=== PATIENT | female | born 1985 ===

== ENCOUNTER 2022-01-25 01:31 | Emergency (ER) | payer BC ==
--- OUTSIDE RECORDS SUMMARY | 2022-01-25 01:35 | XMS REPORT | Continuity of Care Document ---
:[address] [facility] t Address [address] [place] [address] [address] [place] [address] Care Team Providers Name Role Phone Lab, Adc Fam Pob I Attending Clinician Unavailable Mary Martínez Attending Clinician MARY VARGAS Attending Clinician Unavailable Iveth Norris PA-C Attending Clinician Hannah Henley Attending Clinician Mariano Mckeon MD Attending Clinician Doctor Unassigned, [place] Attending Clinician Unavailable Payers Payer Name Policy Type Policy Number Effective Date Expiration Date S ource Problems Condition Condition Condition Status Onset Resolution Last Treating Co mments Source Name Details Category Date Date Treatment Clinician Date Encounter Encounter Problem Active Com mon for IUD for IUD Spirit removal removal - [facility] Encounter Encounter Problem Active Com mon for for [facility] insertion insertion - [facility] IUD IUD [facility] Amenorrhea Amenorrhea Diagnosis Active Common Spirit - [facility] Encounter Encounter Diagnosis Active C ommon for for Spirit routine routine [facility] samir device (IUD) (IUD) Allergies, Adverse Reactions, Alerts Allergy Allergy Status Severity Reaction(s) Onset Inactive Treating Comm ents Source Name Type Date Date Clinician NO KNOWN Drug Active Univers ALLERGIE Class ity [facility] Social History Social Habit Start Date Stop Date Quantity Comments Source Exposure to Yes [facility] SARS-CoV-2 (event) Medica l Branch Sex Assigned At [birth year] [facility] 00:00:00 00:00:00 Medical Branch Smoking Status Start Date Stop Date Source Unknown if ever smoked [facility] Medications Ordered Filled Start Stop Current Ordering Indication Dosage Frequency Signature Comments Components Source Medication Medication Date Date Medication? Clinician (SIG) Name Name Almita (52 Mirkatina (51 Yes Tyrese as Common MG) MG) Shade directed [facility] Procedures Procedure Date / Time Performed Performing Clinician Sourc e XR CHEST 2 VW 2019-03-22 21:28:06 Mariano Mckeon [facility] ASSIGNMENT OF BENEFITS 2019-03-22 21:07:17 Doctor Unassigned, No [facility] Name [facility] Encounters Start End Encounter Admission Attending Care Care Encounter Source Date/Time Date/Time Type Type Clinicians Facility Department ID 2020-05-15 2020-05-15 Laboratory Lab, [facility] [id number]. [id number] Univers 14:00:43 14:20:43 Only Mary Vargas [facility] [id number] ity of [place] [id number] Dov as Professio [phone] Nj dical nal [address] One 2020-05-15 2020-05-15 [facility] [id number] Univers 14:00:00 14:00:00 MARY ity [facility] 2020-03-21 2020-03-21 Laboratory Lab, [facility] I [facility] 1.2. [id number] Univers 15:44:50 16:04:50 Only Mary Vargas Health [id number] ity of [place] [id number] Dov as Professio [phone] Nj dical nal [address] 2020-03-21 2020-03-21 Outpatient R [facility] [id number] Univers 16:00:00 16:00:00 ity [facility] 2019-08-30 2019-08-30 [facility] [id number] Univers 00:00:00 00:00:00 Iveth Health [id number] it y of [place] [id number] Dov as Professio [phone] Me dical nal [address] [facility] 2019-08-29 2019-08-29 Laboratory Lab, Adc Fam Pob I [facility] 1.2. [id number] Univers 17:23:40 17:43:40 Only AneneHannah [id number] ity of [place] [id number] Dov as Professio [phone] Nj dicmo nal [address] [facility] 2019-08-29 2019-08-29 Outpatient R [facility] [id number] Univers 17:40:00 17:40:00 ity of [facility] 2019-03-22 2019-03-22 Hospital Mariano Mckeon [facility] [id number] Univers 15:12:00 23:59:00 Encounter Bassem Morrison [id number] ity of [place] [id number] [facility] [phone] [facility] [address] 2019-03-22 2019-03-22 Orders Doctor IVETH [id number] Univers 00:00:00 00:00:00 Only Unassigned, LAYLA [id number] ity of [place] [facility] [id number] Dov as [phone] [facility] [address] 2017-11-04 2017-11-04 [facility] [id number] Common 15:45:00 15:45:00 [facility] 2017-10-05 2017-10-05 [facility] [id number] Common 11:15:00 11:15:00 t [facility] I [facility] 2017-10-04 2017-10-04 [facility] [id number] Common 14:15:00 14:15:00 t [facility] Results Test Description Test Time Test Comments Results Result Sourc e Comments XR CHEST 2 VW 2019-03-02 HISTORY: Cough. Univer sity of 2 TECHNIQUE: PA and Joy Hodge edical 21:31:21 lateral views of the Bran ch chest are obtained. No prior cheststudy available for comparison. FINDINGS: No acute pneumonia detected. No pneumothorax or pleural effusionor pulmonary congestion appreciated. Cardiomediastinal contour appearsnormal. CONCLUSIONS: No signs of acute cardiopulmonary disease.[facility], Radiant Results Inft User - 03/22/2019 3:32 PM CSTHISTORY: Cough.TECHNIQUE: PA and lateral views of the chest are obtained. No prior cheststudy available for comparison.FINDINGS: No acute pneumonia detected. No pneumothorax or pleural effusionor pulmonary congestion appreciated. Cardiomediastinal contour appearsnormal.CONCLUS IONS: No signs of acute cardiopulmonary disease.
[2022-01-25 02:10] LABS: Absolute Lymphocytes (CBC) 2.7 K/uL (0.7-4.9); Hematocrit 37.4 % (36.0-45.0); Lymphocytes % 40.9 % (15.3-44.8); MCV 86.4 fL (80-100); MPV 8.2 fL (7.6-11.3); RBC Red Blood Cell Count 4.33 M/uL (3.86-4.86)
[2022-01-25 02:25] LABS: ALT/SGPT 21 U/L (12-78); AST/SGOT 13 U/L (15-37); Albumin 3.5 g/dL (3.4-5.0); Alkaline Phosphatase 48 U/L (45-117); BUN Blood Urea Nitrogen 18 mg/dL (7-18); Bicarbonate 27 mmol/L (21-32); Bilirubin Total 0.3 mg/dL (0.2-1.0); Glomerular Filtration Rate 60 ml/min (=/>90); Glucose Level 121 mg/dL (74-106); Lipase 312 U/L (73-393); Potassium 3.7 mmol/L (3.5-5.1); Protein, Total 6.8 g/dL (6.4-8.2); Sodium Level 139 mmol/L (136-145); Troponin High Sensitivity 3.9 pg/mL (<58.9)
[2022-01-25 02:26] LABS: Bilirubin Direct < 0.1 mg/dL (0-0.2)
--- NOTE | 2022-01-25 03:20 | ER ---
Nurse's Notes [facility] Name: Svetlana Maki Age: 36 yrs Sex: Female : 1985 Arrival Date: 01/25/2022 Time: 01:35 Bed 4 Private MD: Diagnosis: Chest pain, unspecified Presentation: 01/25 01:55 Chief complaint: Patient states: I went to bed around 11, 11:30 last night and then I kd3 woke up suddenly with a pain in the center of my chest that made my tongue feel weird. I have heartburn sometimes but this was right in the center of my chest and it hurt more. Coronavirus screen: Vaccine status: Patient reports receiving the 1st dose of the Covid vaccine. J\T\J. Ebola Screen: No symptoms or risks identified at this time. Initial Sepsis Screen: Does the patient meet any 2 criteria? No. Patient's initial sepsis screen is negative. Does the patient have a suspected source of infection? No. Patient's initial sepsis screen is negative. Risk Assessment: Do you want to hurt yourself or someone else? Patient reports no desire to harm self or others. Onset of symptoms was January 25, 2022. 01:55 Method Of Arrival: Ambulatory kd3 01:55 Acuity: RANDY 3 kd3 Triage Assessment: 01:59 General: Appears uncomfortable, Behavior is calm, cooperative. Pain: Complains of pain kd3 in mid-sternal area Pain radiates to mouth and neck. Neuro: Level of Consciousness is awake, alert, obeys commands, Oriented to person, place, time, situation. Cardiovascular: Patient's skin is warm and dry. Rhythm is sinus rhythm Chest pain is located in substernal area. Respiratory: Airway is patent Trachea midline Respiratory effort is even, unlabored, Respiratory pattern is regular, symmetrical. 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 - Social history:: Smoking status: unknown. - Family history:: not pertinent. Screenin:01 Abuse screen: Denies threats or abuse. Denies injuries from another. Nutritional kd3 screening: No deficits noted. Tuberculosis screening: No symptoms or risk factors identified. Fall Risk None identified. Assessment: 01:45 General: Appears in no apparent distress. comfortable, Behavior is calm, cooperative, jb4 appropriate for age. Pain: Complains of pain in mid-sternal area Pain radiates to mouth Pain currently is 4 out of 10 on a pain scale. Neuro: Level of Consciousness is awake, alert, obeys commands, Oriented to person, place, time, situation. Cardiovascular: Patient's skin is warm and dry. Respiratory: Airway is patent Respiratory effort is even, unlabored, Respiratory pattern is regular, symmetrical. Derm: Skin is intact, Skin is pink, warm \T\ dry. Musculoskeletal: Circulation, motion, and sensation intact. Range of motion: intact in all extremities. 02:01 Pain: Pain began suddenly. kd3 03:00 Reassessment: Patient appears in no apparent distress at this time. Patient and/or jb4 family updated on plan of care and expected duration. Pain level reassessed. Patient is alert, oriented x 3, equal unlabored respirations, skin warm/dry/pink. 03:48 Reassessment: Patient appears in no apparent distress at this time. Patient and/or jb4 family updated on plan of care and expected duration. Pain level reassessed. Patient is alert, oriented x 3, equal unlabored respirations, skin warm/dry/pink. Vital Signs: 01:55 BP 113 / 78; Pulse 74; Resp 16; Temp 98.6(O); Pulse Ox 100% on R/A; kd3 02:02 Weight 88.45 kg; Height 5 ft. 9 in. (175.26 cm); kd3 02:47 BP 115 / 86; Pulse 76; Resp 19; Pulse Ox 100% on R/A; kd3 02:02 Body Mass Index 28.80 (88.45 kg, 175.26 cm) kd3 ED Course: 01:35 Patient arrived in ED. bp1 01:38 Joseph Garcia MD is Attending Physician. rt 01:59 Triage completed. kd3 01:59 Arm band placed on. Arm band placed on right wrist. EKG completed in triage. Results kd3 shown to . 02:00 Inserted saline lock: 20 gauge in right antecubital area, using aseptic technique. ds4 Blood collected. 02:01 Patient maintains SpO2 saturation greater than 95% on room air. kd3 02:01 Patient has correct armband on for positive identification. Client placed on continuous kd3 cardiac and pulse oximetry monitoring. NIBP monitoring applied. 02:03 XRAY Chest (1 view) In Process Unspecified. EDMS 03:11 Keo Crocker, RN is Primary Nurse. jb4 03:48 No provider procedures requiring assistance completed. IV discontinued, intact, jb4 bleeding controlled, No redness/swelling at site. Pressure dressing applied. Administered Medications: No medications were administered Medication: 02:01 VIS not applicable for this client. kd3 Outcome: 03:19 Discharge ordered by MD. rt 03:46 Patient left the ED. jb4 03:48 Discharged to home ambulatory. jb4 03:48 Condition: stable 03:48 Discharge instructions given to patient, Instructed on discharge instructions, follow up and referral plans. Demonstrated understanding of instructions, follow-up care. Signatures: Dispatcher [employer] EDNE Immanuel Colindres ds4 Keo Crocker, RN RN jb4 Claudia Green Kyli, RN RN kd3 Joseph Garcia MD MD rt
--- NOTE | 2022-01-25 03:20 | EDPHYS ---
Physician Documentation [facility] Name: Svetlana Maki Age: 36 yrs Sex: Female : 1985 Arrival Date: 01/25/2022 Time: 01:35 Bed 4 Private MD: ED Physician Joseph Garcia HPI: 01/25 01:51 This 36 yrs old Unknown Female presents to ER via Unassigned with complaints of Chest rt Pain > 30 y/o. 01:51 The patient or guardian reports chest pain that is located primarily in the substernal rt area. The pain radiates to Associated signs and symptoms: Pertinent positives: nausea, Pertinent negatives: abdominal pain. The chest pain is described as a pressure. Duration: The patient or guardian reports a single episode, that is still ongoing, but improving. Modifying factors: The symptoms are alleviated by nothing. the symptoms are aggravated by nothing. Severity of pain: At its worst the pain was moderate. Presents to the ED with a substernal chest pain. The patient went to bed feeling well, when she was woken with chest pain. Had nausea at that time, but that is since resolved. Patient states that symptoms continue to improve, not resolution. Denies other acute complaints at this time, symptoms are moderate severity, no other aggravating alleviating factors. 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 - Social history:: Smoking status: unknown. - Family history:: not pertinent. ROS: 01:51 Constitutional: Negative for fever, chills, and weight loss, Eyes: Negative for injury, rt pain, redness, and discharge, ENT: Negative for injury, pain, and discharge, Neck: Negative for injury, pain, and swelling, Cardiovascular: Negative for chest pain, palpitations, and edema, Respiratory: Negative for shortness of breath, cough, wheezing, and pleuritic chest pain, MS/Extremity: Negative for injury and deformity, Skin: Negative for injury, rash, and discoloration, Neuro: Negative for headache, weakness, numbness, tingling, and seizure, Psych: Negative for depression, anxiety, suicide ideation, homicidal ideation, and hallucinations. 01:51 Cardiovascular: Positive for chest pain, Negative for edema. 01:51 Abdomen/GI: Positive for nausea, Negative for abdominal pain, vomiting. Exam: 01:51 Constitutional: This is a well developed, well nourished patient who is awake, alert, rt and in no acute distress. Head/Face: Normocephalic, atraumatic. Eyes: Pupils equal round and reactive to light, extra-ocular motions intact. Lids and lashes normal. Conjunctiva and sclera are non-icteric and not injected. Cornea within normal limits. Periorbital areas with no swelling, redness, or edema. ENT: Nares patent. No nasal discharge, no septal abnormalities noted. Tympanic membranes are normal and external auditory canals are clear. Oropharynx with no redness, swelling, or masses, exudates, or evidence of obstruction, uvula midline. Mucous membranes moist. Neck: Trachea midline, no thyromegaly or masses palpated, and no cervical lymphadenopathy. Supple, full range of motion without nuchal rigidity, or vertebral point tenderness. No Meningismus. Chest/axilla: Normal chest wall appearance and motion. Nontender with no deformity. No lesions are appreciated. Cardiovascular: Regular rate and rhythm with a normal S1 and S2. No gallops, murmurs, or rubs. Normal PMI, no JVD. No pulse deficits. Respiratory: Lungs have equal breath sounds bilaterally, clear to auscultation and percussion. No rales, rhonchi or wheezes noted. No increased work of breathing, no retractions or nasal flaring. Abdomen/GI: Soft, non-tender, with normal bowel sounds. No distension or tympany. No guarding or rebound. No evidence of tenderness throughout. Skin: Warm, dry with normal turgor. Normal color with no rashes, no lesions, and no evidence of cellulitis. MS/ Extremity: Pulses equal, no cyanosis. Neurovascular intact. Full, normal range of motion. Neuro: Awake and alert, GCS 15, oriented to person, place, time, and situation. Cranial nerves II-XII grossly intact. Motor strength 5/5 in all extremities. Sensory grossly intact. Cerebellar exam normal. Normal gait. Psych: Awake, alert, with orientation to person, place and time. Behavior, mood, and affect are within normal limits. 01:59 ECG was reviewed by the Attending Physician. rt Vital Signs: 01:55 BP 113 / 78; Pulse 74; Resp 16; Temp 98.6(O); Pulse Ox 100% on R/A; kd3 02:02 Weight 88.45 kg; Height 5 ft. 9 in. (175.26 cm); kd3 02:47 BP 115 / 86; Pulse 76; Resp 19; Pulse Ox 100% on R/A; kd3 02:02 Body Mass Index 28.80 (88.45 kg, 175.26 cm) kd3 MDM: 01:38 Patient medically screened. rt 03:20 Differential diagnosis:. rt 03:20 Differential diagnosis: acute myocardial infarction, coronary artery disease chest wall rt pain, congestive heart failure pneumonia, pneumothorax, pulmonary embolus. HEART Score: History: Slightly Suspicious (0), ECG: Normal (0), Age: < or = 45 years (0), Risk Factors: No Risk Factors Known (0), Troponin: < or = 1 x Normal Limit (0), Total Score = 0. Data reviewed: vital signs, nurses notes, lab test result(s), EKG, radiologic studies. ED course: Presents to the ED with a chest pain, improved without treatment. Given chronicity of symptoms, onset of enzymes is sufficient to rule out an acute coronary syndrome. She has no acute ischemic changes on EKG. She is PE RC negative, does not require further work-up for pulmonary embolism. Chest x-ray is unremarkable for pneumonia, pneumothorax, CHF. Stable for outpatient care, return precautions discussed. 01/25 01:44 Order name: Basic Metabolic Panel; Complete Time: 02: rt 01/25 01:44 Order name: CBC with Diff; Complete Time: 02: rt 01/25 01:44 Order name: LFT's; Complete Time: 02: rt 01/25 01:44 Order name: Troponin HS; Complete Time: 02: rt 01/25 01:44 Order name: Lipase; Complete Time: 02: rt 01/25 01:44 Order name: Test, Serum; Complete Time: 02:29 rt 01/25 01:44 Order name: XRAY Chest (1 view) rt 01/25 01:44 Order name: EKG; Complete Time: 01:45 rt 01/25 01:44 Order name: Cardiac monitoring; Complete Time: 02:02 rt 01/25 01:44 Order name: EKG - Nurse/Tech; Complete Time: 02:00 rt 01/25 01:44 Order name: IV Saline Lock; Complete Time: 02:00 rt 01/25 01:44 Order name: Labs collected and sent; Complete Time: 02:00 rt 01/25 01:44 Order name: O2 Per Protocol; Complete Time: 02:00 rt 01/25 01:44 Order name: O2 Sat Monitoring; Complete Time: 02:00 rt EC:59 Rate is 72 beats/min. Rhythm is regular, Normal Sinus Rhythm with No ectopy. QRS Patterson rt is Normal. GA interval is normal. QRS interval is normal. QT interval is normal. No Q waves. T waves are Normal. No ST changes noted. Clinical impression: Normal ECG. Interpreted by me. Administered Medications: No medications were administered Disposition: 03:20 Critical Care: not applicable. rt Disposition Summary: 01/25/22 03:19 Discharge Ordered Location: Home rt Problem: new rt Symptoms: have improved rt Condition: Stable rt Diagnosis - Chest pain, unspecified rt Followup: rt - With: Private Physician - When: 2 - 3 days - Reason: Discharge Instructions: - Discharge Summary Sheet rt - Nonspecific Chest Pain, Adult rt Forms: - Medication Reconciliation Form rt - Thank You Letter rt - Antibiotic Education rt - Prescription Opioid Use rt Signatures: Dispatcher [employer] Sherron Lucero, FABIAN RN kd3 Joseph Garcia MD MD rt
[2022-01-25 03:59] VITALS: TEMP 98.6; O2SAT 100
[2022-01-25 04:00] VITALS: BP 115/86
--- NOTE | 2022-01-25 16:45 | RAD REPORT ---
EXAM DESCRIPTION: RAD - Chest Single View - 01/25/2022 2:01 am CLINICAL HISTORY: The patient is 36 years old and is Female; CHEST PAIN TECHNIQUE: Frontal view of the chest. COMPARISON: No relevant prior studies available. FINDINGS: LUNGS: Unremarkable. No consolidation. PLEURAL SPACE: Unremarkable. No pleural effusion. No pneumothorax. HEART: Unremarkable. No cardiomegaly. MEDIASTINUM: Unremarkable. BONES/JOINTS: Unremarkable. IMPRESSION: Normal chest x-ray. 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 The interpreting radiologist is fully responsible for the content of the report.
--- NOTE | 2022-01-26 12:52 | EKG ---
Test Date: 2022-01-25 Test Time: 01:45:13 Investment Executive: RACHEL MEASUREMENT RESULTS: Intervals: Rate: 72 CA: 174 QRSD: 88 QT: 394 QTc: 431 [place]: P: 69 CA: 174 QRS: 81 T: 74 INTERPRETIVE STATEMENTS: Normal sinus rhythm Normal ECG No previous ECG available for comparison Electronically Signed On 01-26-22 12:49:36 CUSTOM HOME INSTALLER by Mitul Schneider
== END 2022-01-25 03:46 | disposition home or self-care (01) ==
LOC: ER 01:31
DX: R07.89 Other chest pain (principal); R11.0 Nausea
CPT/HCPCS: 36415; 71045; 80048; 80076; 83690; 84484; 84703; 85025; 93005; 99284